=== PATIENT | female | born 1955 | race Caucasian/White ===

== ENCOUNTER 2019-09-11 17:01 | Observation (INO) | payer MEDICARE, SELFPAY ==
[2019-09-11] VITALS (7 sets, daily range): BP systolic 109–180; BP diastolic 71–87; PULSE 58–80; RESP 18–31; TEMP 36.4–36.9; O2SAT 89–99; BMI 24.1
--- NOTE | 2019-09-11 17:09 | DI.RAD.S_ITS ---
PROCEDURE: XR CHEST 1V INDICATIONS: chest pain TECHNIQUE: One view of the chest was acquired. COMPARISON: None. FINDINGS: Surgical changes and devices: None. Lungs and pleura: Lungs are clear. No pleural effusions or pneumothorax. Mediastinum: Mediastinal contours appear normal. Heart size is normal. Bones and chest wall: No suspicious bony lesions. Overlying soft tissues appear unremarkable. IMPRESSION: No acute cardiopulmonary abnormality. Dictated by: Elías Carmichael M.D. on 09/11/2019 at 17:48 Approved by: Elías Carmichael M.D. on 09/11/2019 at 17:48
[2019-09-11 17:17] LABS: Add Manual Diff / Slide Review NO; Basophils Absolute Auto 0 /uL (0-100); Basophils Percent Auto 0.8 % (0-2); Eosinophils Absolute Auto 0 /uL (0-450); Eosinophils Percent Auto 1.2 % (2-4); Hematocrit 36.7 % (36-46); Hemoglobin 12.7 g/dL (12.0-16.0); Lymphocytes Absolute Auto 1600 /uL (1100-4500); Lymphocytes Percent Auto 43.3 % (25-40); Mean Corpuscular HGB Conc 34.7 % (30-36); Mean Corpuscular Hemoglobin 32.1 PG (26-34); Mean Corpuscular Volume 92.6 fL (80-100); Monocytes Absolute Auto 200 /uL (0-900); Monocytes Percent Auto 6.5 % (3-14); Neutrophils Absolute Auto 1700 /uL (1500-7000); Neutrophils Percent Auto 48.2 % (50-75); Platelet Count 201 X10^3/uL (150-400); Red Blood Cell Count 3.96 X10^6/uL (4.0-5.2); Red Cell Distribution Width 13.8 % (11.6-14.8); White Blood Cell Count 3.6 X10^3/uL (4.5-11.0)
[2019-09-11 17:26] LABS: Prothrombin Time 11.4 SECONDS (10.1-12.7)
[2019-09-11 17:28] LABS: Alanine Aminotransferase 16 IU/L (<35); Albumin 4.4 g/dL (3.5-5.0); Albumin Globulin Ratio 1.4 (1.0-2.8); Alkaline Phosphatase 83 U/L (38-126); Aspartate Aminotransferase 27 IU/L (14-36); Bilirubin Total 0.4 mg/dL (0.2-1.3); Blood Urea Nitrogen 17 mg/dL (7-17); Calcium 9.3 mg/dL (8.4-10.2); Carbon Dioxide 26 mmol/L (22-32); Chloride 105 mmol/L (98-107); Creatine Kinase 58 U/L (30-135); Estimated Glomerular Filt Rate > 60.0 mL/min (>60); Globulin 3.2 g/dL (1.7-4.1); Glucose 106 mg/dL (80-110); HEMOLYSIS 19 (0-50); Lipase 199 U/L (23-300); Potassium 3.8 mmol/L (3.4-5.1); Sodium 137 mmol/L (137-145); Total Protein 7.6 g/dL (6.3-8.2)
[2019-09-11 17:29] LABS: PTT Partial Thromboplastin Tim 29 SECONDS (26.4-36.2)
[2019-09-11] MEDS: ASPIRIN 81 MG CHEW TAB 324 MG PO (17:39)
[2019-09-11 17:40] LABS: Troponin I < 0.012 ng/mL (0.01-0.034)
--- NOTE | 2019-09-11 17:50 | ED_ITS ---
HPI - Chest Pain General Chief Complaint: Chest Pain Stated Complaint: JAW PAIN NAUSEA SWEATING Time Seen by Provider: 09/11/19 17:12 Source: patient Mode of arrival: Ambulatory Limitations: no limitations History of Present Illness HPI narrative: Patient is a 64-year-old female with history of depression presenting with right jaw pain. She says that she was looking at the model number of a chair when she suddenly got right jaw pain diffusely diaphoretic and nauseated. The symptoms lasted for about 10-15 minutes and resolved on their own. She actually did not have chest pain or shortness of breath. She is currently symptom free in the emergency department. She has no prior history of coronary artery disease however her father does have history of cardiac disease with multiple stents. MD complaint: chest pain Duration: now resolved Pain location: other (Jaw) Severity: moderate Associated symptoms: nausea and diaphoresis Related Data Allergies Allergy/AdvReac Type Severity Reaction Status Date / Time No Known Drug Allergies Allergy Verified 09/11/19 17:11 Review of Systems Review of Systems Narrative: GENERAL: Denies chills, fatigue, malaise, fever, sweats, travel HEENT: + jaw pain Denies sinus pain, ear pain, sore throat, difficulty swallowing, neck pain RESPIRATORY: Denies dyspnea, cough, wheezing, hemoptysis, sputum. CARDIOVASCULAR: Denies chest pain, palpitations, orthopnea, edema GASTROINTESTINAL: Denies nausea, vomiting, abdominal pain, diarrhea, constipation, melena. : Denies dysuria, frequency, incontinence, hematuria, urinary retention, flank pain. MUSCULOSKELETAL: Denies weakness, joint pain, or bony pain SKIN: No rash, no erythema, no pruritus NEUROLOGIC: Denies weakness, dizziness, headache, numbness, change in speech, confusion PSYCHIATRIC: No concerning psychosocial issues. 12 point review of systems is negative except for those stated above and HPI Patient History Medical History Depression (Acute) Social History Smoking Status: Unknown if ever smoked Smoking Status: Unknown if ever smoked alcohol intake frequency: holidays/special occasions only Substance Use Type: does not use Exam Initial Vital Signs Initial Vital Signs: Vital Signs Pulse Rate 67 09/11/19 17:11 Respiratory Rate 25 H 09/11/19 17:11 Pulse Oximetry 89 L 09/11/19 17:11 GENERAL: Well-appearing, well-nourished and in no acute distress. HEENT: Head atraumatic,EOMI, pupils reactive, face symmetric, moist mucous membranes CARDIOVASCULAR: Regular rate and rhythm without murmurs, rubs or gallops. RESPIRATORY: Breath sounds equal bilaterally, no wheezes rales or rhonchi. ABDOMEN: Soft, nontender. Normoactive bowel sounds all 4 quadrants. No guarding or rebound. EXTREMITIES: Normal range of motion, no clubbing or edema. Neurovascularly intact NEUROLOGICAL: Alert and oriented x4.Normal gait and speech. SKIN: Warm, dry, no laceration, no petechiae, no rashes or lesions. Course Orders Ordered: ED Orders 09/11/19 17:09 XR chest 1V Stat EKG-12 Lead Stat 09/11/19 17:10 Complete Blood Count AUTO DIFF Stat Comprehensive Metabolic Panel Stat Lipase Stat Partial Thromboplastin Time Stat Prothrombin Time INR Stat Troponin & CK Cardiac Panel Stat Discontinued Medications Aspirin (Aspirin Chew) 324 mg PO NOW ONE Stop: 09/11/19 17:27 Last Admin: 09/11/19 17:39 Dose: 324 mg Documented by: OKSANAESTER Vital Signs Vital signs: Vital Signs - 8 hr 09/11/19 17:11 09/11/19 17:12 09/11/19 17:30 Temperature 98.5 F Pulse Rate 67 80 71 Respiratory Rate 25 H 24 31 H Blood Pressure 180/87 H Pulse Oximetry 89 L 98 99 09/11/19 17:38 09/11/19 18:00 09/11/19 18:18 Temperature Pulse Rate 63 65 58 L Respiratory Rate 24 Blood Pressure 120/71 109/78 Pulse Oximetry 99 94 99 MDM - Chest Pain Lab Data Attestation: I reviewed the patient's lab results. Result diagrams: 09/11/19 17:10 09/11/19 17:10 Labs: Lab Results 09/11/19 09/11/19 09/11/19 Range/Units 17:10 17:10 17:10 WBC 3.6 L (4.5-11.0) X10^3/uL RBC 3.96 L (4.0-5.2) X10^6/uL Hgb 12.7 (12.0-16.0) g/dL Hct 36.7 (36-46) % MCV 92.6 (80-100) fL MCH 32.1 (26-34) PG MCHC 34.7 (30-36) % RDW 13.8 (11.6-14.8) % Plt Count 201 (150-400) X10^3/uL Neut % (Auto) 48.2 L (50-75) % Lymph % (Auto) 43.3 H (25-40) % [place] % (Auto) 6.5 (3-14) % Eos % (Auto) 1.2 L (2-4) % Baso % (Auto) 0.8 (0-2) % Neut # (Auto) 1700 (3168-4117) /uL Lymph # (Auto) 1600 (5536-9532) /uL [place] # (Auto) 200 (0-900) /uL Eos # (Auto) 0 (0-450) /uL Baso # (Auto) 0 (0-100) /uL PT 11.4 (10.1-12.7) SECONDS INR 1.0 (0.9-1.3) APTT 29 (26.4-36.2) SECONDS Sodium 137 (137-145) mmol/L Potassium 3.8 (3.4-5.1) mmol/L Chloride 105 (98-107) mmol/L Carbon Dioxide 26 (22-32) mmol/L BUN 17 (7-17) mg/dL Creatinine 0.50 L (0.52-1.04) mg/dL Estimated GFR > 60.0 (>60) mL/min BUN/Creatinine Ratio 34.0 H (6-22) Glucose 106 (80-110) mg/dL Calcium 9.3 (8.4-10.2) mg/dL Total Bilirubin 0.4 (0.2-1.3) mg/dL AST 27 (14-36) IU/L ALT 16 (<35) IU/L Alkaline Phosphatase 83 (38-126) U/L Total Creatine Kinase 58 (30-135) U/L CK-MB (CK-2) TNP CK-MB (CK-2) Rel Index TNP Troponin I < 0.012 (0.01-0.034) ng/mL Total Protein 7.6 (6.3-8.2) g/dL Albumin 4.4 (3.5-5.0) g/dL Globulin 3.2 (1.7-4.1) g/dL Albumin/Globulin Ratio 1.4 (1.0-2.8) Lipase 199 (23-300) U/L Imaging Data Chest x-ray: Radiologist's Impression: PROCEDURE: XR CHEST 1V INDICATIONS: chest pain TECHNIQUE: One view of the chest was acquired. COMPARISON: None. FINDINGS: Surgical changes and devices: None. Lungs and pleura: Lungs are clear. No pleural effusions or pneumothorax. Mediastinum: Mediastinal contours appear normal. Heart size is normal. Bones and chest wall: No suspicious bony lesions. Overlying soft tissues appear unremarkable. IMPRESSION: No acute cardiopulmonary abnormality. Dictated by: Elías Carmichael M.D. on 09/11/2019 at 17:48 Approved by: Elías Carmichael M.D. on 09/11/2019 at 17:48 ECG Data Attestation: I personally reviewed and interpreted this ECG as follows: Prior ECG tracings: not available for review Interpretation: EKG 1. Sinus rhythm rate 63 p.r. interval 175 QRS [address] depression noted in lead [address] elevation depression is less than 1 mm EKG 2. Normal sinus rhythm rate 55 p.r. interval [address] elevation depression or T-wave inversion MDM Narrative Medical decision making narrative: Patient remains asymptomatic in the emergency department. She is given aspirin. Discussed case with Dr. patterson who agrees to observation Discharge Plan Departure Admit Date/Time: 09/11/19 18:19 Admit Provider: Sabrina Patterson
--- NOTE | 2019-09-11 18:00 | PC.NURSE ---
pt reports come to ED for nausea, diaphoresis, and strong pain radiating up right side of neck. Denies chest pain or sob. States rest helped but here for eval. VSS. pt in good spirits, in room with at bedside.
[2019-09-11 20:40] LABS: Troponin I < 0.012 ng/mL (0.01-0.034)
[2019-09-11] MEDS: ATORVASTATIN 20 MG TABLET 40 MG PO (21:17)
--- NOTE | 2019-09-11 22:45 | PC.NURSE ---
A&OX3. pt denied any pain, nausea, sob, or dizziness. pt ambulating independently in room. call light in reach. safety checks. oriented pt to the room. around 2229 ICU notified me that pt was in ariella 40-50's. pt does not appear to be in distress, she is comfortable and no new complaints. pt reports her HR at home is around 60's. Will pass this info to mine shifter RN.
[2019-09-12] VITALS: BP 128/78; PULSE 54; RESP 16; TEMP 36.2; O2SAT 99
--- NOTE | 2019-09-12 00:13 | PC.NURSE ---
Addendum entered by Olga Baker R.N. 09/12/19 05:36: GREY STOCK RECORDER, Ana Rosa, reports in past hour patient's HR has dropped down as low as 41 several times. Russell BARRETT, héctor. Original Note: Patient seen and assessed at 2336. Is alert and oriented. Breath sounds CTA with RA sat of 99%. HRR; last telemetry reading was SB and current HR in 50's. Denies nausea. BT present and abdomen is soft. Moving self in bed and up to bathroom independently. Instructed to call for assistance prior to getting up if having any chest pain, lightheadedness or dizziness; patient verbalizes understanding. Denies pain. NPO after 0000 for NM stress test in a.m. Fall risk score is low
--- NOTE | 2019-09-12 01:14 | PM.HP.1 ---
History of Present Illness History of Present Illness Date Patient Seen: 09/11/19 Time Patient Seen: 20:00 Chief complaint: JAW PAIN NAUSEA SWEATING Narrative: Miguelito Escoto is a very pleasant 64-year-old female with minimal medical history except depression that has been treated and has been trying to taper off of her sertraline was in her usual state of health when she developed right-sided jaw pain yesterday she states that she got very nauseous and diaphoretic. She said that she had an odd feeling, not like having an elephant sitting on her chest and that everything was sudden and lasted for about 10 minutes. She was on [facility] and was immediately able to obtain prior to boarding to get to [facility] after discussing her case with her insurance triage nurse. She lives in [place] and has a [place] on the [place]. Patient had been on a taper for sertraline for which she had been on for the past 20 years. She had been on a maximum dose of 200 mg a day and had tapered over a number of weeks to the point where she was only taking 12.5 mg a day and abruptly stopped that 2 days ago. She states she has actually felt better since getting off of it. On August 26 she donated blood and then 2 days later she stated that she felt quite irritable and jittery. She is also recently stopped drinking coffee and is now only drinking tea as the coffee Mater to ?jittery?. She denies fevers or chills, cough, difficulty swallowing, chief actual chest pain, shortness of breath, she had nausea but no vomiting, denies abdominal pain, dysuria, diarrhea or constipation. She denies any upper lower extremity neuropathies or pain. She denies easy bleeding or bruising. In the ED the patient's labs were drawn. WBC was 3.6, RBC 3.96, hemoglobin 12.7, hematocrit 36.7, platelet count 201, sodium 137, potassium 3.8, chloride 105, CO2 26, creatinine 0.50, BUN 17, GFR greater than 60, glucose 106, calcium 9.3, total bilirubin 0.4, remaining liver enzymes normal, and lipase 199. Chest x-ray reported negative for any cardiopulmonary acute process. Patient History Medical History (Updated 09/12/19 @ 01:43 by NENA Gross) Depression (Chronic) Surgical History (Updated 09/12/19 @ 01:43 by NENA Gross) History of hysterectomy (Acute) Family & Social History Family History (Updated 09/12/19 @ 01:45 by NENA Gross) Mother Hypertension Father H/O heart artery stent History of mitral valve repair Social History: household members spouse Prior Living Arrangements House Safety & Behavioral: Feels Safe in Current Yes Environment Been Physically Hurt or No Threatened By a Person Suicidal Ideation Description None Tobacco & Substance use: Smoking Status Never smoker alcohol intake current, occasional beers alcohol intake frequency a few times a week Substance Use Type does not use Meds Home Medications and Allergies Home Medications Medication Instructions Recorded Confirmed Type calcium carb and citrate-vitD3 2 tab PO DAILY 09/11/19 09/11/19 History [Citracal-D3 Slow Release] omega 9-[id number]-[id number]-fish oil [Fish Oil] 1 cap PO DAILY 09/11/19 09/11/19 History Allergies Allergy/AdvReac Type Severity Reaction Status Date / Time No Known Drug Allergies Allergy Verified 09/11/19 17:11 Review of Systems Review of Systems ROS: Yes All systems reviewed with the patient and are negative except as otherwise documented Exam Vital Signs (past 8 hours): - 09/11/19 17:30 09/11/19 17:38 09/11/19 18:00 Temperature Pulse Rate 71 63 65 Respiratory Rate 31 H 24 Blood Pressure 120/71 Pulse Oximetry 99 99 94 09/11/19 18:18 09/11/19 18:35 09/12/19 00:00 Temperature 97.5 F L 97.2 F L Pulse Rate 58 L 74 54 L Respiratory Rate 18 16 Blood Pressure 109/78 135/80 128/78 Pulse Oximetry 99 98 99 Oxygen Delivery Method Room Air Oxygen Flow Rate 0 Narrative Exam Narrative: Vitals: Temp: 97.2?, blood pressure: 128/78, heart rate: 54, respiratory rate: 16, oxygen saturation: 99% on room air, weight: 58, BMI: 24.1 Gen: Alert, oriented, well-developed 64 y.o. female, NAD HEENT: normocephalic, atraumatic, conjunctiva clear, sclera non-icteric, oral mucosa pink and moist Neck: supple, full ROM, no JVD, trachea is midline Resp: Lungs CTA, non-labored breathing CV: RRR, no murmur or rubs Abd: soft, non-tender, normoactive BTs Skin: no lesions or rashes, dry and intact Neuro: Alert and oriented X 4 w/no focal deficits. Speech clear and coherent. Extremities: moves all 4 extremities, is ambulatory, negative Jaime?s sign Psyche: normal mood and bright affect. Objective Labs Result Diagrams: 09/11/19 17:10 09/11/19 17:10 Labs: Laboratory Results - last 24 hr 09/11/19 09/11/19 09/11/19 17:10 17:10 17:10 WBC 3.6 L RBC 3.96 L Hgb 12.7 Hct 36.7 MCV 92.6 MCH 32.1 MCHC 34.7 RDW 13.8 Plt Count 201 Neut % (Auto) 48.2 L Lymph % (Auto) 43.3 H [place] % (Auto) 6.5 Eos % (Auto) 1.2 L Baso % (Auto) 0.8 Neut # (Auto) 1700 Lymph # (Auto) 1600 [place] # (Auto) 200 Eos # (Auto) 0 Baso # (Auto) 0 PT 11.4 INR 1.0 APTT 29 Sodium 137 Potassium 3.8 Chloride 105 Carbon Dioxide 26 BUN 17 Creatinine 0.50 L Estimated GFR > 60.0 BUN/Creatinine Ratio 34.0 H Glucose 106 Calcium 9.3 Total Bilirubin 0.4 AST 27 ALT 16 Alkaline Phosphatase 83 Total Creatine Kinase 58 CK-MB (CK-2) TNP CK-MB (CK-2) Rel Index TNP Troponin I < 0.012 Total Protein 7.6 Albumin 4.4 Globulin 3.2 Albumin/Globulin Ratio 1.4 Lipase 199 09/11/19 20:09 WBC RBC Hgb Hct MCV MCH MCHC RDW Plt Count Neut % (Auto) Lymph % (Auto) [place] % (Auto) Eos % (Auto) Baso % (Auto) Neut # (Auto) Lymph # (Auto) [place] # (Auto) Eos # (Auto) Baso # (Auto) PT INR APTT Sodium Potassium Chloride Carbon Dioxide BUN Creatinine Estimated GFR BUN/Creatinine Ratio Glucose Calcium Total Bilirubin AST ALT Alkaline Phosphatase Total Creatine Kinase CK-MB (CK-2) CK-MB (CK-2) Rel Index Troponin I < 0.012 Total Protein Albumin Globulin Albumin/Globulin Ratio Lipase Assessment & Plan Assessment & Plan narrative: Miguelito Escoto this is a 64-year-old female who will be observed overnight for atypical presentation to rule out ACS. Chest pain rule out, acute, present on admission -1st 2 troponins are negative 3rd 1 is pending and is likely negative and will stop the series. -aspirin 81 mg it started the morning, she was given 325 mg in the ED. -patient will undergo a Lexiscan test in the morning sometime -her jaw pain may possibly be a unusual presentation of anxiety however it would be prudent to rule out any cardiac cause. -telemetry overnight -Fasting Lipid panel, start atorvastatin 40 mg po daily Consults: none Patient is observation status as her stay is not likely to exceed 2 midnights. FEN: Saline lock, low sodium diet, BMP in the am. VTE prophylaxis: Bilateral SCDs Dispo: Probable discharge to home w/follow-up with primary Code Status: Full code as discussed with patient
[2019-09-12 01:52] LABS: Troponin I < 0.012 ng/mL (0.01-0.034)
[2019-09-12 03:33] VITALS: BP 90/57; PULSE 55; RESP 15; TEMP 36.8; O2SAT 98
[2019-09-12 07:50] LABS: Add Manual Diff / Slide Review YES; Hematocrit 36.9 % (36-46); Hemoglobin 12.7 g/dL (12.0-16.0); Mean Corpuscular HGB Conc 34.3 % (30-36); Mean Corpuscular Volume 93.4 fL (80-100); Platelet Count 184 X10^3/uL (150-400); Red Blood Cell Count 3.95 X10^6/uL (4.0-5.2); Red Cell Distribution Width 13.6 % (11.6-14.8); White Blood Cell Count 2.9 X10^3/uL (4.5-11.0)
[2019-09-12 08:01] LABS: BUN Creatinine Ratio 23.6 (6-22); Blood Urea Nitrogen 13 mg/dL (7-17); Carbon Dioxide 28 mmol/L (22-32); Chloride 109 mmol/L (98-107); Cholesterol 230 mg/dL (140-199); Estimated Glomerular Filt Rate > 60.0 mL/min (>60); Glucose 94 mg/dL (80-110); HDL Cholesterol 85 mg/dL (40-60); HEMOLYSIS < 15 (0-50); LDL Cholesterol Calculated 123 mg/dL (<100); Potassium 3.9 mmol/L (3.4-5.1); Sodium 138 mmol/L (137-145); Triglycerides 109 mg/dL (35-150)
[2019-09-12 08:05] LABS: Anisocytosis 1+; Neutrophils Absolute Manual 1160 /uL (3000-5900); Poikilocytosis 1+; Total Cells Counted 100
[2019-09-12 08:12] LABS: Troponin I < 0.012 ng/mL (0.01-0.034)
[2019-09-12 08:22] VITALS: BP 105/62; PULSE 52; RESP 16; TEMP 36.5; O2SAT 99
[2019-09-12] MEDS: ASPIRIN EC 81 MG TABLET PO (08:31)
[2019-09-12] MEDS: SODIUM CHLORIDE 0.9% FLUSH 10 ML IV (08:31)
[2019-09-12 08:38] LABS: TSH w/ Reflex to FT4 3.48 uIU/mL (0.47-4.68)
--- NOTE | 2019-09-12 09:29 | P.DS_ITS ---
History of Present Illness History of Present Illness Chief complaint: JAW PAIN NAUSEA SWEATING Narrative: Miguelito Escoto is a very pleasant 64-year-old female with minimal medical history except depression that has been treated and has been trying to taper off of her sertraline was in her usual state of health when she developed right-sided jaw pain yesterday she states that she got very nauseous and diaphoretic. She said that she had an odd feeling, not like having an elephant sitting on her chest and that everything was sudden and lasted for about 10 minutes. She was on [facility] and was immediately able to obtain prior to boarding to get to [facility] after discussing her case with her insurance triage nurse. She lives in [place] and has a family home on the [place]. Patient had been on a taper for sertraline for which she had been on for the past 20 years. She had been on a maximum dose of 200 mg a day and had tapered over a number of weeks to the point where she was only taking 12.5 mg a day and abruptly stopped that 2 days ago. She states she has actually felt better since getting off of it. On August 26 she donated blood and then 2 days later she stated that she felt quite irritable and jittery. She is also recently stopped drinking coffee and is now only drinking tea as the coffee Mater to ?jittery?. She denies fevers or chills, cough, difficulty swallowing, chief actual chest pain, shortness of breath, she had nausea but no vomiting, denies abdominal pain, dysuria, diarrhea or constipation. She denies any upper lower extremity neuropathies or pain. She denies easy bleeding or bruising. In the ED the patient's labs were drawn. WBC was 3.6, RBC 3.96, hemoglobin 12.7, hematocrit 36.7, platelet count 201, sodium 137, potassium 3.8, chloride 105, CO2 26, creatinine 0.50, BUN 17, GFR greater than 60, glucose 106, calcium 9.3, total bilirubin 0.4, remaining liver enzymes normal, and lipase 199. Chest x-ray reported negative for any cardiopulmonary acute process. Discharge Providers Provider Date of admission: 09/11/19 18:19 Discharge Date: 09/12/19 Discharge provider: Nikolay Castro MD Summary Hospital Course Discharge Diagnosis: 1. Atypical pain in jaw 2. Leukopenia 3. Non symptomatic sinus bradycardia Hospital Course: Patient admitted for atypical jaw pain concerning for cardiac etiology. Symptoms were accompanied by diaphoresis and weakness and lasted about 10 minutes. She had serial negative cardiac enzymes. There were no concerning changes on her EKG. She did not have symptom recurrence in hospital. She mentioned that she had a normal cardiac CT scan last year. Symptoms are considered unlikely to be of cardiac origin she has recently tapered off sertraline which she was on for many years but the taper has been quite gradual over the past 6 months. We noted her heart rate would dip into the 40s on telemetry but in a sinus rhythm. She does not seem to be symptomatic and is able to raise heart rate with activity. Her TSH was normal. She had mild leukopenia of undetermined significance with WBC 3.6 and repeat WBC 2.9. She is not aware of her baseline counts. She is advised to follow-up with PCP and have a repeat CBC done in 1-2 months. Status at Discharge Cognitive/behavioral status at discharge: oriented Functional status at discharge: independent ambulation Overall status at discharge: patient is back to baseline Time Spent with Patient Time spent: Less than 30 minutes Exam Vital Signs (past 8 hours): - 09/12/19 03:33 09/12/19 08:22 Temperature 98.2 F 97.7 F Pulse Rate 55 L 52 L Respiratory Rate 15 16 Blood Pressure 90/57 L 105/62 Pulse Oximetry 98 99 Oxygen Delivery Method Room Air Oxygen Flow Rate 0 Objective Labs Result Diagrams: 09/12/19 07:39 09/12/19 07:39 Labs: Laboratory Results - last 24 hr 09/11/19 09/11/19 09/11/19 17:10 17:10 17:10 WBC 3.6 L RBC 3.96 L Hgb 12.7 Hct 36.7 MCV 92.6 MCH 32.1 MCHC 34.7 RDW 13.8 Plt Count 201 Neut % (Auto) 48.2 L Lymph % (Auto) 43.3 H [place] % (Auto) 6.5 Eos % (Auto) 1.2 L Baso % (Auto) 0.8 Neut # (Auto) 1700 Lymph # (Auto) 1600 [place] # (Auto) 200 Eos # (Auto) 0 Baso # (Auto) 0 Total Counted Seg Neutrophils % Band Neutrophils % Lymphocytes % (Manual) Atypical Lymphs % Monocytes % (Manual) Eosinophils % (Manual) Basophils % (Manual) Neutrophils # (Manual) RBC Morphology Poikilocytosis Anisocytosis PT 11.4 INR 1.0 APTT 29 Sodium 137 Potassium 3.8 Chloride 105 Carbon Dioxide 26 BUN 17 Creatinine 0.50 L Estimated GFR > 60.0 BUN/Creatinine Ratio 34.0 H Glucose 106 Calcium 9.3 Magnesium Total Bilirubin 0.4 AST 27 ALT 16 Alkaline Phosphatase 83 Total Creatine Kinase 58 CK-MB (CK-2) TNP CK-MB (CK-2) Rel Index TNP Troponin I < 0.012 Total Protein 7.6 Albumin 4.4 Globulin 3.2 Albumin/Globulin Ratio 1.4 Triglycerides Cholesterol LDL Cholesterol, Calc HDL Cholesterol Lipase 199 TSH 09/11/19 09/12/19 09/12/19 20:09 01:15 07:39 WBC RBC Hgb Hct MCV MCH MCHC RDW Plt Count Neut % (Auto) Lymph % (Auto) [place] % (Auto) Eos % (Auto) Baso % (Auto) Neut # (Auto) Lymph # (Auto) [place] # (Auto) Eos # (Auto) Baso # (Auto) Total Counted Seg Neutrophils % Band Neutrophils % Lymphocytes % (Manual) Atypical Lymphs % Monocytes % (Manual) Eosinophils % (Manual) Basophils % (Manual) Neutrophils # (Manual) RBC Morphology Poikilocytosis Anisocytosis PT INR APTT Sodium Potassium Chloride Carbon Dioxide BUN Creatinine Estimated GFR BUN/Creatinine Ratio Glucose Calcium Magnesium Total Bilirubin AST ALT Alkaline Phosphatase Total Creatine Kinase CK-MB (CK-2) CK-MB (CK-2) Rel Index Troponin I < 0.012 < 0.012 Total Protein Albumin Globulin Albumin/Globulin Ratio Triglycerides 109 Cholesterol 230 H LDL Cholesterol, Calc 123 H HDL Cholesterol 85 H Lipase TSH 09/12/19 09/12/19 09/12/19 07:39 07:39 07:39 WBC 2.9 L RBC 3.95 L Hgb 12.7 Hct 36.9 MCV 93.4 MCH 32.0 MCHC 34.3 RDW 13.6 Plt Count 184 Neut % (Auto) Not Reportable Lymph % (Auto) Not Reportable [place] % (Auto) Not Reportable Eos % (Auto) Not Reportable Baso % (Auto) Not Reportable Neut # (Auto) Lymph # (Auto) Not Reportable [place] # (Auto) Not Reportable Eos # (Auto) Baso # (Auto) Not Reportable Total Counted 100 Seg Neutrophils % 39.0 Band Neutrophils % 1.0 L Lymphocytes % (Manual) 38.0 Atypical Lymphs % 14.0 H Monocytes % (Manual) 5.0 Eosinophils % (Manual) 1.0 L Basophils % (Manual) 2.0 H Neutrophils # (Manual) 1160 L RBC Morphology Not Reportable Poikilocytosis 1+ H Anisocytosis 1+ H PT INR APTT Sodium 138 Potassium 3.9 Chloride 109 H Carbon Dioxide 28 BUN 13 Creatinine 0.55 Estimated GFR > 60.0 BUN/Creatinine Ratio 23.6 H Glucose 94 Calcium 9.0 Magnesium 2.0 Total Bilirubin AST ALT Alkaline Phosphatase Total Creatine Kinase CK-MB (CK-2) CK-MB (CK-2) Rel Index Troponin I < 0.012 Total Protein Albumin Globulin Albumin/Globulin Ratio Triglycerides Cholesterol LDL Cholesterol, Calc HDL Cholesterol Lipase TSH 09/12/19 07:39 WBC RBC Hgb Hct MCV MCH MCHC RDW Plt Count Neut % (Auto) Lymph % (Auto) [place] % (Auto) Eos % (Auto) Baso % (Auto) Neut # (Auto) Lymph # (Auto) [place] # (Auto) Eos # (Auto) Baso # (Auto) Total Counted Seg Neutrophils % Band Neutrophils % Lymphocytes % (Manual) Atypical Lymphs % Monocytes % (Manual) Eosinophils % (Manual) Basophils % (Manual) Neutrophils # (Manual) RBC Morphology Poikilocytosis Anisocytosis PT INR APTT Sodium Potassium Chloride Carbon Dioxide BUN Creatinine Estimated GFR BUN/Creatinine Ratio Glucose Calcium Magnesium Total Bilirubin AST ALT Alkaline Phosphatase Total Creatine Kinase CK-MB (CK-2) CK-MB (CK-2) Rel Index Troponin I Total Protein Albumin Globulin Albumin/Globulin Ratio Triglycerides Cholesterol LDL Cholesterol, Calc HDL Cholesterol Lipase TSH 3.48 Discharge Plan Discharge Plan Patient Disposition: Home Discharge comment: Follow up with PCP on low white blood cell count. Discharge orders & Medications Prescriptions: Continued omega 1-yzf-ggt-fish oil [Fish Oil] 1,000 mg (120 mg-180 mg) Capsule 1 cap PO DAILY RF: 0 calcium carb and citrate-vitD3 [Citracal-D3 Slow Release] 600 mg calcium- 500 unit Tablet Extended Release 2 tab PO DAILY RF: 0 Diet/Activity/Treatments Diet: Diet as Tolerated Discharge Data Attending Provider: Sabrina Thompson Admit Date/Time: 09/11/19 18:19
--- NOTE | 2019-09-12 10:27 | PC.NURSE ---
Patient plans to call her PCP today to schedule a follow up appointment. Patient denies any further symptoms, questions or concerns at this time. Discharge instructions reviewed with patient, she states understanding. IV removed intact.
--- NOTE | 2019-09-12 14:17 | CM.DANOTE ---
DCP/Assessment: Reviewed chart. Patient is a 65yr old female admitted to [facility] for jaw pain, nausea and sweating. PCP not listed. Primary payor is 1)[facility] [employer]. Attempted to meet patient this AM and patient had already discharged. Spoke with RN/Roland, she reports patient I with ADL's and had no identified d/c planning needs. P: Home today with supportive family. KARLIE Paredes Discharge Planning/Care Management CM Discharge Assessment Start: 09/12/19 14:15 Freq: Status: Active Protocol: Document 09/12/19 14:15 KJS (Rec: 09/12/19 14:17 KJS [id number]) Discharge Planning Assessment Assigned Tax Manager [employer] KARLIE Paredes DPOA/Assigned Designee Name Timothy Abel (spouse) # [phone] Advance Directives? No History Provided By Medical Record Has Patient been admitted in last 30 No days? Prior Living Arrangements House Household Members spouse Independent with ADL's Yes: per RN patient I in ADL 's Is patient alert and oriented? Yes Barriers to Discharge No Discharge Plan Home Transportation Arrangement Family to provide transport. Referrals Initiated None needed Review Status In Process Next Review Type Continued Stay Review
== END 2019-09-12 11:15 | disposition home or self-care (01) ==
LOC: ED 17:58 → AC 18:20
PROVIDERS: Nurse Practitioner Family; Admitting Provider Internal Medicine; Emergency Provider Emergency Medicine; Visit Provider Internal Medicine
DX: R07.9 Chest pain, unspecified (principal); R68.84 Jaw pain; R00.1 Bradycardia, unspecified; D72.819 Decreased white blood cell count, unspecified; R11.0 Nausea; R61 Generalized hyperhidrosis
CPT/HCPCS: 36415; 71045; 80048; 80053; 80061; 82550; 83690; 83735; 84443; 84484; 85025; 85610; 85730; 93005; 99284; G0378

== ENCOUNTER → 2020-01-01 15:06 | Outpatient (CLI) | payer MEDICARE, SELFPAY ==
[2019-09-11 19:13] VITALS: BMI 24.1
== END ==
PROVIDERS: Visit Provider Nurse Practitioner
DX: R30.0 Dysuria (principal)
CPT/HCPCS: 87077; 87086; 87186